=== PATIENT | male | born 1940 | race Caucasian/White ===

== ENCOUNTER → 2016-09-25 | Outpatient (CLI) | payer MEDICARE, OTHER ==
[~2016-09-25] MED LIST: ADVAIR 2501 DISK W/D PO; ALBUTEROL17 GM INH; ALLEGRA PO; ALLEGRA180 MG PO; APRESOLINE PO; ASPIRIN PO; ASPIRIN81 M1 PO; ATENOLOL PO; CARDURA PO; CARDURA4 M1 PO; COMBIVENT U/D3 ML INH; DIPROLENE AF 0.15 GM TOP; DITROPAN XL PO; DYAZIDE 37.5/251 CAP PO; EC-NAPROSYN500 MG PO; ETODOLAC400 M1 PO; FLOMAX0.4 MG PO; FOLIC ACID1 MG PO; GLUCOVANCE 5/501 TA1 PO; HUMALOG100 U/M1 SQ; HYDRALAZINE HCL50 MG PO; HYDROCHLOROTHIA25 MG PO; HYDROCODON-ACE1 EACH PO; IBUPROFEN PO; JANUMET XR 50-1 EAC1 PO; KEFLEX PO; LANTUS100 U/ML INJ; LANTUS100 U/ML SQ; LANTUS100 U/ML SUBQ; LASIX PO; LEVAQUIN750 MG PO; LEVEMIR100 U/ML SQ; LEVOXYL200 MC1 PO; LISINOPRIL PO; LODINE PO; METFORMIN HCL500 M1 PO; METFORMIN PO; NASONEX17 GM; PLAVIX PO; PREDNISONE PO; PRILOSEC20 M1 PO; PRINIVIL PO; PROCARDIA XL PO; SYNTHROID PO; SYNTHROID125 PO; TREXALL5 MG PO; TRIAMTERENE-HCT1 TA6 PO; UROXATRAL10 MG PO; VIBRAMYCIN100 M1 PO; VITAMIN B6 PO; VITAMIN B650 M1 PO; ZOCOR PO; ZOCOR80 MG PO
--- NOTE | ~2016-09-25 | CT4 ---
[facility] A Service of [facility] & [facility] RADIOLOGY TEXT RESULTS PATIENT: CANDELARIO GALINDO [facility] UNIT #: [id number] AGE: [address]: MARCELINA GRIMALDO MD (INT MED) SEX: M ORDER DR: [id number] [facility] [address] [place], [place] [address] [id number] O MR#: [id number] Acc #: [id number] NAME: CANDELARIO GALINDO. : 1940 SEX: M STUDY DATE/TIME: 09/25/2016 15:00 UNIT: [facility] ROOM: STUDY DESCRIPTION: CT Abd and Pelv Wo Cont Attending Physician: Marcelina Grimaldo M.D. Ordering Physician: Marcelina Grimaldo M.D. Primary Care Physician: Marcelina Grimaldo M.D. MEDICAL IMAGING REPORT This report is preliminary unless electronic signature is present EXAM CT abdomen and pelvis without contrast, 09/25/2016 INDICATION Nausea, vomiting, and diarrhea for the past 2 months. Periumbilical abdominal pain for the past [address] of the abdomen and pelvis. MRI of the abdomen from 08/24/2004. This CT exam was performed with one or more of the following radiation dose reduction techniques: automatic exposure control, adjustment of mA and/or kV according to patient size, and iterative reconstruction. FINDINGS ABDOMEN WITHOUT CONTRAST: Included lung bases predominantly clear. The liver and spleen showed no definite lesion on this unenhanced study. There is a rim-calcified cyst in the posterior left kidney that measures 5.6 cm. This was present on the previous MRI. Malrotation of the right kidney. There is a 1.8 cm cyst in the lower right kidney. A single limb right adrenal gland. Left adrenal gland unremarkable. Pancreas unremarkable unenhanced appearance. There are several stones in the gallbladder. No evidence for active gallbladder inflammation. Bowel loops are nondilated. Appendix is normal. There is a 2 cm fat-containing umbilical hernia. PELVIS WITHOUT CONTRAST: Prostate measures 5.2 cm. A 1.4 cm diverticulum from the left side of the bladder. There is a linear 5 mm calcification in the left posterior aspect of the bladder. It could represent a stone or a calcification in the wall. There is mild bladder wall thickening. [facility]. [facility] A Service of [facility] RADIOLOGY TEXT RESULTS PATIENT: CANDELARIO GALINDO LOCATION: [facility] : 42 UNIT #: [id number] AGE: [address]: MARCELINA GRIMALDO MD (INT MED) SEX: M ORDER DR: Old fractures of the right eighth and ninth ribs. No aggressive appearing bone lesion. L5 pars defects. Grade 1 anterolisthesis L5 on S1. IMPRESSION 1. No acute findings in the abdomen or pelvis. 2. Multiple incidental findings detailed above including uncomplicated cholelithiasis, bilateral renal cysts, fat-containing umbilical hernia, prostatomegaly. 3. Mild bladder wall thickening could reflect a component of underlying outlet obstruction. There is a 1.4 cm bladder diverticulum. 4. Linear calcification dependently in the bladder could represent wall calcification or dependent stone. It measures 5 mm. Dictated by... Navid Weber M.D. THIS IS AN ELECTRONICALLY VERIFIED REPORT Navid Weber M.D. at 09/26/2016 7:35 AM BRUCE/glynn TD: 09/26/2016 00:28 JOB #: [id number] MEDICAL IMAGING REPORT Page 1 of 1 COPY
== END | disposition home or self-care (01) ==
LOC: CCAT 13:56
DX: R11.2 Nausea with vomiting, unspecified (principal); R19.7 Diarrhea, unspecified; N32.3 Diverticulum of bladder; K80.20 Calculus of gallbladder without cholecystitis without obstruction; N28.1 Cyst of kidney, acquired; K42.9 Umbilical hernia without obstruction or gangrene; N40.0 Benign prostatic hyperplasia without lower urinary tract symptoms
CPT/HCPCS: 74176

== ENCOUNTER 2016-10-23 14:13 | Emergency (ER) | payer MEDICARE, OTHER ==
[2016-10-23 14:20] LABS: BASOPHIL# 0.1 X10e3 (0-0.3); EOSINOPHIL# 0.1 X10e3 (0-0.7); EOSINOPHIL% 0.9 % (0.0-7.0); HEMATOCRIT 37.7 % (38.0-50.0); HEMOGLOBIN 11.7 gm/dL (13.0-16.0); LYMPHOCYTE# 1.2 X10e3 (1.0-3.5); MEAN CELL VOLUME 75.9 FL (83-96); MEAN CORPUSCULAR HEMOGLOBIN 23.5 PG (28-34); MEAN PLATELET VOLUME 8.4 FL (6.5-11.5); MONOCYTE# 0.8 X10e3 (0-1.0); MONOCYTE% 8.3 % (3.0-12.0); NEUTROPHIL# 7.4 X10e3 (1.5-7.1); NEUTROPHIL% 76.8 % (40-75); PLATELET COUNT 362 X10e3 (140-420); RED BLOOD COUNT 4.98 X10e (3.90-5.60); RED CELL DISTRIBUTION WIDTH 18.6 % (11.0-15.5); WHITE BLOOD COUNT 9.6 X10e3 (4.0-10.5)
[2016-10-23 14:28] LABS: DIFF IND NO
[2016-10-23 14:31] LABS: URINE SOURCE CLEAN CATCH
[2016-10-23 14:35] LABS: URINE APPEARANCE CLEAR; URINE BILIRUBIN NEG (NEG); URINE BLOOD NEG (NEG); URINE COLOR YELLOW; URINE GLUCOSE 100 MG/DL (NEG); URINE KETONE NEG (NEG); URINE LEUKOCYTE ESTERASE NEG (NEG); URINE NITRATE NEG (NEG); URINE PROTEIN NEG (NEG); URINE SPECIFIC GRAVITY 1.019 (1.003-1.035)
[2016-10-23 14:40] LABS: CULTURE INDICATED? NO
[2016-10-23 14:50] LABS: ALBUMIN SERUM 3.6 g/dL (3.5-5.0); BILIRUBIN, DIRECT 0.1 mg/dL (0.0-0.2); BILIRUBIN,INDIRECT 0.3 mg/dL (0.0-0.9); BILIRUBIN,TOTAL 0.4 mg/dL (0.2-2.0); BUN/CREATININE RATIO 14.66; CALCIUM SERUM 8.7 mg/dL (8.4-10.2); CREATININE SERUM 1.5 mg/dL (0.6-1.4); GLOM FILT RATE Estimated 44.9 mL/min (>60); POTASSIUM 4.1 mmol/L (3.5-5.1); PROTEIN TOTAL SERUM 7.4 g/dL (6.0-8.3)
== END 2016-10-23 17:35 | disposition home or self-care (01) ==
LOC: CED 14:13
PROVIDERS: Emergency Medicine
DX: R11.10 Vomiting, unspecified (principal); R19.7 Diarrhea, unspecified; I25.10 Atherosclerotic heart disease of native coronary artery without angina pectoris; E11.9 Type 2 diabetes mellitus without complications; I10 Essential (primary) hypertension; K21.9 Gastro-esophageal reflux disease without esophagitis; Z79.4 Long term (current) use of insulin; Z79.899 Other long term (current) drug therapy; Z79.82 Long term (current) use of aspirin; Z79.01 Long term (current) use of anticoagulants
CPT/HCPCS: 36415; 80048; 80076; 81003; 82150; 82947; 83690; 85025; 96361; 96374; 96375; 96376; 99284; J2405